=== PATIENT | female | born 1980 | race Caucasian/White ===

== ENCOUNTER → 2016-06-03 | Outpatient (CLI) | payer OTHER | LOC: KOH-I 09:45 | DX: S49.90XA Unspecified injury of shoulder and upper arm, unspecified arm, initial encounter (principal); R93.7 Abnormal findings on diagnostic imaging of other parts of musculoskeletal system | CPT/HCPCS: 73221 ==

== ENCOUNTER → 2016-07-18 | Outpatient (CLI) | payer OTHER | LOC: KOH-I 10:20 | DX: S33.5XXA Sprain of ligaments of lumbar spine, initial encounter (principal); M51.26 Other intervertebral disc displacement, lumbar region; M51.27 Other intervertebral disc displacement, lumbosacral region | CPT/HCPCS: 72148 ==